=== PATIENT | female | born 1965 | race Caucasian/White ===

== ENCOUNTER 2016-05-31 11:57 | Inpatient (IN) | payer OTHER ==
--- NOTE | ~2016-05-31 | CO ---
Unit #: [id number] #: [id number] Patient: DENICE MARLEY [id number] [facility] [address] [place] [address] [id number] MR#: [id number] NAME: DENICE MARLEY ROOM: P209 Age: 50 Sex: F Admission Date: 05/31/2016 : 1965 Attending Physician: Nico Kathleen M.D. Primary Care Physician: Nara Blackman A.P.R.N. Consultation Date: 06/01/2016 CONSULTATION REPORT SUBJECTIVE Denice is a 50-year-old with history of diabetes mellitus. Home medications include Levemir 25 units q.h.s. We will continue this, add a NovoLog sliding scale and monitor Accu-Cheks a.c. and h.s. Medications will be adjusted as needed. Dictated by... Shawnee Romano P.A.-C. for Clotilde Ayers/fletcher TD: 06/14/2016 02:06 JOB #: [id number] CONSULTATION REPORT Page 1 of 1 X Shawnee Romano CONSULTATION REPORT
--- NOTE | ~2016-05-31 | PA ---
Unit #: [id number] #: [id number] Patient: ÁNGEL MARLEY [id number] [place] [address] [id number] MR#: [id number] NAME: ÁNGEL MARLEY ROOM: P209 Age: 50 Sex: F Admission Date: 05/31/2016 : 1965 Date of Assessment: 06/01/2016 Attending Physician: Nico Kathleen M.D. Admitting Physician: Nico Kathleen M.D. Primary Care Physician: Nara Blackman A.P.R.N. PSYCHIATRIC ASSESSMENT DATE OF SERVICE 06/01/2016. INFORMANTS The patient, reliable; OLOP, reliable. CHIEF COMPLAINT Depression and drug relapse. HISTORY OF PRESENT ILLNESS Ms. Marley is a 50-year-old woman with previous admission to this facility, who came in reporting extreme irritability and lack of response to current psychiatric medications. It appeared from laboratory studies that she had been noncompliant with medications, although she denied this. She also had recently relapsed on cocaine and alcohol, but once again she minimized these symptoms and was somewhat angry that they were the focus of her assessment. She was unable to contract for safety and was admitted for stabilization. PAST PSYCHIATRIC HISTORY Multiple previous hospitalizations with the last at this hospital in 01/2016. FAMILY PSYCHIATRIC HISTORY Please see previous assessments. SOCIAL HISTORY The patient is with 2 children. She has an extensive history of substance abuse and is on disability for medical problems. PAST MEDICAL HISTORY Significant for COPD and nonepileptic seizures. MEDICATIONS None currently. ALLERGIES No known medication allergies. SUBSTANCE ABUSE HISTORY The patient has a history of abusing alcohol and cocaine. MENTAL STATUS EXAMINATION Unit #: [id number] #: [id number] Patient: ÁNGEL MARLEY The patient presented as a mildly older woman, who appeared older her stated age. She was irritable and cooperative with the examination. Her speech was mildly pressured, but easily understood. Musculoskeletal examination was calm. Her mood was irritable and labile with a congruent affect. She was alert and fully oriented. Memory and concentration were fair to good. Thought processes were goal directed with no active psychosis. She continued to report suicidal ideation and could not contract for safety outside of the hospital. Her insight and judgment were fair. Her fund of knowledge and abstraction were fair. ASSETS AND LIABILITIES The patient knows local resources and presents voluntarily for treatment. Liabilities include apparent noncompliance with medication and recent drug relapse. ADMITTING DIAGNOSES AXIS I: Bipolar depressed, alcohol dependence, cocaine abuse. AXIS II: No diagnosis. AXIS III: History of seizures, history of diabetes, history of chronic pain. AXIS IV: AXIS V: PSYCHIATRIC PLAN The patient was admitted and placed on suicide precautions. Her home medications for psychiatric and primary care treatment will be restarted at previous doses and schedules and she will enroll in dual diagnosis groups and activities. She does not appear to require detox at this time, although we will monitor her and treat as appropriate. She will enroll in dual diagnosis groups and activities. TREATMENT GOALS Resolution of SI, improvement in insight, and improvement in coping skills. DISCHARGE PLANNING Follow up with primary care physician and [facility] mental health. ESTIMATED LENGTH OF STAY 5 days. Dictated by... Nico Kathleen M.D. VALDEZ/fletcher TD: 07/24/2016 23:49 JOB #: [id number] Unit #: [id number] #: [id number] Patient: ÁNGEL MARLEY DAX PSYCHIATRIC ASSESSMENT Page 1 of 1 X Nico Kathleen MD X PSYCHIATRIC ASSESSMENT
--- NOTE | ~2016-05-31 | HP ---
Unit #: [id number] #: [id number] Patient: DENICE MARLEY [id number] [place] [address] [id number] MR#: [id number] NAME: DENICE MARLEY ROOM: P209 Age: 50 Sex: F Admission Date: 05/31/2016 : 1965 Attending Physician: Nico Kathleen M.D. Admitting Physician: Nico Kathleen M.D. Primary Care Physician: Nara Blackman A.P.R.N. HISTORY AND PHYSICAL HISTORY OF PRESENT ILLNESS Denice is a 50 year old admitted to [address] [place] [address] because of her polysubstance abuse which includes crack cocaine and alcohol. PAST MEDICAL HISTORY 1. Long history of polysubstance abuse. 2. History of alcohol abuse. 3. Seizure disorder. 4. Degenerative disc disease. 5. Diabetes mellitus. 6. COPD. 7. High blood pressure. 8. Hypercholesterolemia. 9. History of pancreatitis. PAST SURGICAL HISTORY 1. x2. 2. Cervical disc x2. 3. Tubal ligation. 4. Hiatal hernia repair. 5. Bilateral ganglion cysts removed. ALLERGIES Sulfa (hives). SOCIAL HISTORY Smokes at least 1/2 pack per day. Drinks 1/2 gallon of liquor on a weekly basis and admits to regular use of crack cocaine. FAMILY HISTORY Medically noncontributory. REVIEW OF SYSTEMS CONSTITUTIONAL: No fever or chills. HEENT: Denies any sore throat, ear pain or runny nose. CARDIOVASCULAR: Denies chest pain, irregular heart rhythm or palpitations. CHEST: Denies shortness of breath or cough. No hemoptysis. GASTROINTESTINAL: Denies nausea, vomiting, diarrhea or chronic constipation. ENDOCRINE: Denies history of increased thirst or urination. No recent significant weight loss or gain. GENITOURINARY: Denies dysuria, frequency, or hematuria. SKIN: Denies any rashes. Unit #: [id number] #: [id number] Patient: DENICE MARLEY HEMATOLOGIC: Denies history of increased bleeding or bruising. MUSCULOSKELETAL: Denies any hot, swollen joints. No generalized muscle pain. NEUROLOGIC: Denies problems with vision or speech. No frequent, severe headaches. No numbness, tingling or weakness in any extremities. Denies loss of bladder or bowel control. CURRENT MEDICATIONS No orders received at the time of this dictation. PHYSICAL EXAMINATION GENERAL: Alert, obese, in no apparent distress. VITAL SIGNS: Blood pressure 122/76, heart rate 78, respirations 16, temperature 98.6. WEIGHT: 224. HEIGHT: 5 feet 5 inches. SKIN: Warm and dry without rash or lesion. HEENT: Normocephalic. TMs not viewed. Oral and nasal passages clear. Conjunctivae clear. PERRLA. EOMs intact. NECK: Supple without lymphadenopathy or thyromegaly. HEART: Regular rate and rhythm without murmur. LUNGS: Clear. ABDOMEN: Soft, nontender. : Not done. EXTREMITIES: No evidence of cyanosis, clubbing or edema. Moves all without focal deficit. NEUROLOGICAL: Grossly within normal limits. Cranial Nerves: II: Visual ferguson are intact. III, IV AND : Extraocular movements are intact. Pupils are equal, round and reactive to light. V: Facial sensation is grossly normal. VII: Facial movements and expression are normal. VIII: Auditory acuity grossly intact. IX, X: Uvula is midline. Phonation is normal. XI: Patient shrugs shoulders and turns head normally. XII: Tongue protrudes in the midline. Sensory and Motor Function: Sensory and motor sensation is grossly normal. Motor: moves all extremities well. Coordination: Gait is normal. Deep Tendon Reflexes: Intact. IMPRESSION Psychiatric admission. RECOMMENDATIONS PSYCHIATRIC: Per psychiatrist. MEDICAL: See no contraindications to participate in facility's activities. MEDICAL PROGNOSIS Good. MEDICAL CONDITION Stable. Dictated by... Shawnee Romano P.A.-C. for Valerio Larkin M.D. Unit #: [id number] #: [id number] Patient: DENICE MARLEY JOSE/erika TD: 05/31/2016 18:43 JOB #: [id number] HISTORY AND PHYSICAL Page 1 of 1 X Shawnee Romano HISTORY AND PHYSICAL
--- NOTE | ~2016-05-31 | DS ---
Unit #: [id number] #: [id number] Patient: DENICE KU [id number] [place] [address] [id number] MR#: [id number] NAME: DENICE KU ROOM: P209 Age: 50 Sex: F Admission Date: 05/31/2016 : 1965 Discharge Date: 06/05/2016 Attending Physician: Nico Kathleen M.D. Primary Care Physician: Nara Blackman A.P.R.N. DISCHARGE SUMMARY REASON FOR ADMISSION Ms. Ku is a 50-year-old woman with a history of bipolar disorder, who has been noncompliant with medications and recently relapsed onto drug use. She was irritable and expansive in the emergency room and was unable to contract for safety with active suicidal ideation. She was admitted for stabilization. DIAGNOSTIC STUDIES LABORATORY RESULTS: Please see hospital chart. HOSPITAL COURSE Denice was admitted and placed on suicide precautions. Her home medications were restarted with the addition of Depakote for mood stability. She participated appropriately in unit groups and activities and her irritability and mood lability decreased. She was seen by our medical sociologist and her home medications continued unchanged. On the date of discharge, she was able to contract for safety and had achieved sobriety. DISCHARGE DIAGNOSES AXIS I: Bipolar disorder, depressed; history of polysubstance dependence. AXIS II: Borderline and antisocial personality traits. AXIS III: Diabetes, hypertension, chronic pain, chronic obstructive pulmonary disease. AXIS IV: AXIS V: DISCHARGE INSTRUCTIONS Follow up with primary care physician and community mental health. DISCHARGE MEDICATIONS Depakote 750 mg daily for mood stability, Cymbalta 90 mg daily for depression, trazodone 300 mg at bedtime for insomnia. Primary care medicines per primary care physician. CONDITION AT DISCHARGE Improved. PROGNOSIS Fair to good if the patient maintains sobriety and followup. DIET AND ACTIVITY Unit #: [id number] #: [id number] Patient: DENICE KU Per primary care doctor. Dictated by... Clotilde YusufH/fletcher TD: 07/24/2016 15:37 JOB #: [id number] DISCHARGE SUMMARY Page 1 of 1 X Nico Kathleen MD DISCHARGE SUMMARY
[2016-06-01 09:36] LABS: BASOPHIL% 0.5 % (0-2.5); EOSINOPHIL# 0.2 X10e3 (0-0.7); EOSINOPHIL% 2.3 % (0.0-7.0); HEMATOCRIT 37.6 % (35.0-45.0); HEMOGLOBIN 12.7 gm/dL (12.0-16.0); LYMPHOCYTE# 2.9 X10e3 (1.0-3.5); LYMPHOCYTE% 33.4 % (17.0-45.0); MEAN CELL VOLUME 89.7 FL (83-96); MEAN CORPUSCULAR HEMOGLOBIN 30.3 PG (28-34); MEAN CORPUSCULAR HGB CONC 33.8 g/dL (30-36); MEAN PLATELET VOLUME 8.2 FL (6.5-11.5); MONOCYTE# 0.8 X10e3 (0-1.0); MONOCYTE% 9.8 % (3.0-12.0); NEUTROPHIL# 4.7 X10e3 (1.5-7.1); PLATELET COUNT 276 X10e3 (140-420); RED BLOOD COUNT 4.19 X10e (3.90-5.30); RED CELL DISTRIBUTION WIDTH 12.8 % (11.0-15.5); WHITE BLOOD COUNT 8.7 X10e3 (4.0-10.5)
[2016-06-01 09:38] LABS: DIFF IND NO
[2016-06-01 10:08] LABS: ALBUMIN SERUM 3.9 g/dL (3.5-5.0); BILIRUBIN,TOTAL 0.6 mg/dL (0.2-2.0); BUN/CREATININE RATIO 22.22; CALCIUM SERUM 9.6 mg/dL (8.4-10.2); CREATININE SERUM 0.9 mg/dL (0.6-1.4); GLOM FILT RATE Estimated 75.1 mL/min (>60); POTASSIUM 4.2 mmol/L (3.5-5.1); PROTEIN TOTAL SERUM 6.6 g/dL (6.0-8.3)
[2016-06-01 13:07] LABS: AMPHETAMINE NEG (NEG); BARBITURATES NEG (NEG); BENZODIAZEPINES NEG (NEG); COCAINE NEG (NEG); MARIJUANA NEG (NEG); OPIATES NEG (NEG); TRICYCLIC ANTIDEPRESSANTS NEG (NEG); U METHADONE NEG (NEG)
[2016-06-05 10:16] LABS: BILIRUBIN,TOTAL 0.6 mg/dL (0.2-2.0); CALCIUM SERUM 9.9 mg/dL (8.4-10.2); GLOM FILT RATE Estimated 66.1 mL/min (>60); POTASSIUM 4.8 mmol/L (3.5-5.1); PROTEIN TOTAL SERUM 6.9 g/dL (6.0-8.3)
== END 2016-06-05 15:38 | disposition home or self-care (01) | DRG 885 ==
LOC: P2S 11:57
PROVIDERS: Psychiatry & Neurology Psychiatry
DX: F31.30 Bipolar disorder, current episode depressed, mild or moderate severity, unspecified (principal); E11.9 Type 2 diabetes mellitus without complications; I10 Essential (primary) hypertension; F60.3 Borderline personality disorder; F60.2 Antisocial personality disorder; J44.9 Chronic obstructive pulmonary disease, unspecified; G89.29 Other chronic pain; E78.00 Pure hypercholesterolemia, unspecified; F17.210 Nicotine dependence, cigarettes, uncomplicated; Z91.14 Patient's other noncompliance with medication regimen
CPT/HCPCS: 80053; 80164; 80307; 82947; 83036; 85025